=== PATIENT | male | born 1950 | race Caucasian/White ===

== ENCOUNTER 2018-07-04 01:28 | Emergency (ER) | payer OTHER ==
[2018-07-04] MEDS ORDERED: MORPHINE SULFATE 10 MG/ML VIAL IVP ONE (01:34)
[2018-07-04] MEDS ORDERED: ONDANSETRON HCL IV 4 MG/2 ML VIAL IVP ONE (01:34)
[2018-07-04] MEDS ORDERED: 0.9 % SODIUM CHLORIDE 1,000 ML BAG IV ONE ×2 (01:34→02:21)
--- NOTE | 2018-07-04 01:39 | Emergency Department Record ---
History of Present Illness - General Chief Complaint: Abdominal Pain Stated Complaint: ABDOMINAL PAIN Time Seen by Provider: 07/04/18 01:33 Source: Patient, Family Mode of Arrival: Ambulatory Limitations: No limitations - History of Present Illness Initial Comments: 68 yo male presents with abdominal pain for about 2 hours. He states he ate a number of nuts and then developed upper to middle abdominal pressure. The pressure has been constant that last 2 hours. He has nausea and dry heaves. No diarrhea. No chest pain or shortness of breath. No fevers. He had a normal day prior to this. 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 No recent changes in his health. He denies a history of abdominal surgery. PCP is Dr Kaiser. No history of gallstone, ulcers, GERD, intestinal issues. He is not a smoker, occasional alcohol, No current prescription medications. No known CAD, HTN, DM, elevated cholesterol. MD Complaint: Abdominal pain -: Hour(s) (2) Location: Epigastric Radiation: Epigastric Migration to: Epigastric Severity scale (1-10): 5 Quality: Aching Consistency: Constant Improves With: Nothing Worsens With: Eating Associated Symptoms: Anorexia, Vomiting (dry heaves) - Related Data Home Medications Medication Instructions Recorded Confirmed Last Taken No Home Med [NO HOME MEDS] 07/04/18 07/04/18 Unknown Allergies Allergy/AdvReac Type Severity Reaction Status Date / Time No Known Drug Allergies Allergy Verified 07/04/18 01:38 Review of Systems Constitutional: Denies: Chills, Fever, Malaise, Weakness Eyes: Denies: Eye discharge ENT: Denies: Congestion, Throat pain Respiratory: Denies: Cough, Dyspnea Cardiovascular: Denies: Chest pain, Palpitations, Syncope Endocrine: Denies: Fatigue, Polydipsia, Polyuria Gastrointestinal: Reports: Abdominal pain, Nausea, Vomiting. Denies: Constipation, Diarrhea, Hematemesis, Hematochezia, Melena Genitourinary: Denies: Dysuria, Frequency, Hematuria Musculoskeletal: Reports: Back pain. Denies: Arthralgia, Joint swelling, Myalgia Skin: Denies: Bruising, Change in color, Rash Neurological: Denies: Headache Psychiatric: Denies: Anxiety Hematological/Lymphatic: Denies: Blood Clots, Easy bleeding, Easy bruising Physical Exam - General General Appearance: Alert, Oriented x3, Cooperative, No acute distress Limitations: No limitations - Head Head exam: Atraumatic, Normal inspection - Eye Eye exam: Normal appearance, Conjunctival injection - ENT ENT exam: Normal exam Ear exam: Normal external inspection Nasal Exam: Normal inspection Mouth exam: Normal external inspection - Neck Neck exam: Normal inspection - Respiratory Respiratory exam: Normal lung sounds bilaterally. negative: Respiratory distress - Cardiovascular Cardiovascular Exam: Regular rate, Normal rhythm, Normal heart sounds Peripheral Pulses: 2+: Radial (R), Radial (L) - GI/Abdominal GI/Abdominal exam: Soft, Normal bowel sounds, Tenderness (mild tenderness upper abdomen otherwise very soft). negative: Diminished bowel sounds, Distended, Guarding, Hernia, Mass, Pulsatile mass, Rebound, Rigid - Rectal Rectal exam: Deferred - exam: Deferred - Extremities Extremities exam: Normal inspection. negative: Pedal edema - Back Back exam: Denies: CVA tenderness (R), CVA tenderness (L) - Neurological Neurological exam: Alert, Oriented X3 - Psychiatric Psychiatric exam: Normal affect, Normal mood - Skin Skin exam: Dry, Intact, Normal color, Warm Course - Reevaluation(s) Reevaluation #1: No prior visits on the EMR 07/04/18 01:38 07/04/18 01:43 EKG #1: 0139 Rate: 70 Rhythm: sinus [place]: normal Intervals: normal ST segments: normal Normal EKG Prior: none 07/04/18 01:56 The CBC was reviewed. No acute changes. 07/04/18 02:11 The CMP and Lipase were reviewed The HCO3 and AG were 21, TBili 1.9 and BUN 24. May represent some volume depletion from hockey. Lipase is 66 Normal Liver Transaminases and Alk Phos. The Lactic Acid is 2.6 07/04/18 02:25 The patient reports his abdominal discomfort is worse with the oral contrast. He states the pressure in his abdomen has not improved with treatment so far. 07/04/18 02:28 07/04/18 03:49 [facility] report gallbladder appears distended. There is wall thickening with suggestion of infiltration of fat adjacent to the gall bladder suspicious for acute cholecystitis. 07/04/18 04:09 The patient was informed of the results. He is now completely pain free. We discussed this likely could be a gall bladder issue. I offered to transfer him , monitor until AM and get and US and surgery consult if needed. He declined at this time. He states since he is pain free he requests no further testing or treatment at this time. He requests discharge home and will return for a recheck and US in the morning. I explained the symptoms could return. He understands and still requests DC to return for a recheck. He will be referred to general surgery regardless. He will return for a recheck around 10am. He knows to remain NPO and he agrees to return sooner if fever, vomiting or return of pain. He is completely asymptomatic at discharge. 07/04/18 04:24 Medical Decision Making - Lab Data Result diagrams: 07/04/18 01:40 07/04/18 01:40 Disposition Disposition: Discharge Clinical Impression: Abdominal pain in male, Biliary colic Disposition: Home, Self-Care Condition: (1) Good Instructions: Biliary Colic (ED) Additional Instructions: Return to the ER at 10 am for a recheck Return sooner if the pain in the abdomen returns, fever, vomiting or any new concerns Do not eat prior to returning as this could interfere with the ultrasound testing. Referrals: Bruno Paul [DOCTOR OF OSTEOPATH] - [facility] [Provider Group] Forms: Patient Portal Access Time of Disposition: 04:15 Quality - Quality Measures Quality Measures: N/A - Blood Pressure Screening Does Patient Have Any of the Following: No Blood Pressure Classification: Pre-Hypertensive BP Reading Systolic Measurement: 178 Diastolic Measurement: 89 Screening for High Blood Pressure: < Pre-Hypertensive BP, F/U Documented > [ G8950] Pre-Hypertensive Follow-up Interventions: Referral to alternative/primary care provider.
[2018-07-04 01:50] LABS: BASO % 0.3 % (0-6); EOS % 7.5 % (0-6); GRAN % 60.9 % (47-80); HEMATOCRIT 44.2 % (42.0-52.0); HEMOGLOBIN 15.6 gm/dl (14.0-18.0); LYMPH % 25.4 % (16-45); MEAN CELL VOLUME 87.5 fl (81-97); MEAN CORPUSCULAR HEMOGLOBIN 30.9 pg (27-33); MEAN CORPUSCULAR HGB CONC 35.3 g/dl (32-36); MEAN PLATELET VOLUME 10.5 fl (7.4-10.4); MONO % 5.9 % (0-9); PLATELET COUNT 149 K/uL (130-400); RED BLOOD COUNT 5.05 M/uL (4.40-5.70); WHITE BLOOD COUNT W/O DIFF 7.6 K/uL (4.2-12.2)
[2018-07-04 02:00] LABS: BLOOD UREA NITROGEN 24 mg/dL (8-23); EST GLOMERULAR FILTRATION RATE > 60 mL/min; TOTAL PROTEIN 7.2 g/dL (6.6-8.7)
[2018-07-04 02:02] LABS: GLUCOSE,RANDOM 120 mg/dL (74-109)
[2018-07-04 02:03] LABS: PROTHROMBIN TIME (PATIENT) 10.5 SECONDS (9.5-12.1)
[2018-07-04] MEDS ORDERED: FENTANYL PF 100MCG/2ML VIAL IVP ONE (02:03)
[2018-07-04 02:05] LABS: ALB/GLOB RATIO 1.9 (1.1-1.8); ALBUMIN 4.7 g/dL (4.0-5.0); ALKALINE PHOSPHATASE 68 U/L (40-129); ALT/SGPT 21 U/L (<41); AST/SGOT 16 U/L (10.0-50.0); LIPASE 66 U/L (13-60)
[2018-07-04] MEDS ORDERED: ACETAMINOPHEN 1,000 MG/100 ML BTL IVPB ONE (02:25)
[2018-07-04] MEDS: HYDROMORPHONE HCL 2 MG/ML VIAL IVP ONE ×2 (02:32→02:45)
[2018-07-04] MEDS ORDERED: 0.9 % SODIUM CHLORIDE 1000ML 1,000 ML IV ONE (03:49)
--- NOTE | 2018-07-07 13:01 | CT SCAN REPORT ---
DATE: 07/04/2018. EXAM: POSTCONTRAST CT SCAN OF THE ABDOMEN AND PELVIS. HISTORY: Epigastric and right upper abdominal quadrant pain. COMPARISON: None. TECHNIQUE: Postcontrast CT of the abdomen and pelvis with 100 mL of Omnipaque 300 intravenous contrast. Oral contrast also provided. FINDINGS: Minimal dependent lower lobe atelectasis bilaterally. Lung bases are otherwise clear. Gallbladder is mildly descended with mild pericholecystic inflammatory fat stranding. No definite gallstones visible by CT. Unremarkable appearance of the liver, Adrenal glands, and pancreas. Mild splenomegaly measuring up to 13.6 cm in craniocaudal dimension. Symmetric renal perfusion. No hydronephrosis. Right-sided mid intrarenal 2.0 mm calculus. Stomach distended with likely ingested material. Small bowel is nondilated. Normal, noninflamed appendix. Small amount of scattered stool throughout the colon. Mild sigmoid colon diverticulosis without evidence of acute diverticulitis. No mesenteric or retroperitoneal lymphadenopathy. Urinary bladder mildly distended. Calcifications within the prostate. Aortoiliac arterial access is calcified and mildly tortuous. No evidence of aneurysmal dissection. No definite acute osseous findings. Multilevel lumbar spine degenerative changes. IMPRESSION: 1. MILD DISTENSION OF THE GALLBLADDER WITH SUGGESTION OF UNDERLYING WALL THICKENING WELL PERICHOLECYSTIC FAT STRANDING. NO DEFINITE GALLSTONES VISIBLE BY CT. HOWEVER, FINDINGS ARE SUSPICIOUS FOR AN INFLAMMATORY GALLBLADDER PROCESS SUCH CHOLECYSTITIS. THIS COULD BE FURTHER ASSESSED WITH DEDICATED RIGHT UPPER QUADRANT ULTRASOUND INDICATED CLINICALLY. 2. MILD SPLENOMEGALY. 3. SIGMOID COLON DIVERTICULOSIS WITHOUT EVIDENCE OF ACUTE DIVERTICULITIS. JOB NUMBER: [id number] [facility]
== END 2018-07-04 04:16 | disposition home or self-care (01) ==
LOC: ER 01:28
DX: K80.50 Calculus of bile duct without cholangitis or cholecystitis without obstruction (principal); R10.13 Epigastric pain; R11.0 Nausea
CPT/HCPCS: 74177; 80053; 83605; 83690; 84484; 85025; 85610; 85730; 93005; 93010; 96361; 96374; 96375; 99284; J2270; J2405; J7030

== ENCOUNTER 2018-07-04 09:49 | Emergency (ER) | payer OTHER ==
--- NOTE | 2018-07-04 10:16 | Emergency Department Record ---
History of Present Illness - General Chief Complaint: Abdominal Pain Stated Complaint: GALLBLADDER/ULTRA SOUND SEEN 07/03 Time Seen by Provider: 07/04/18 10:05 Source: Patient Mode of Arrival: Ambulatory Limitations: No limitations - History of Present Illness Initial Comments: pt is here to get abd us. he was here last night w ruq ap that is now gone. pt had abd ct that showed thickened gb wall. MD Complaint: Abdominal pain Onset/Timin -: Days(s) Location: RUQ Consistency: Intermittent Improves With: Nothing Worsens With: Nothing Associated Symptoms: Denies other symptoms - Related Data Allergies Allergy/AdvReac Type Severity Reaction Status Date / Time No Known Drug Allergies Allergy Verified 07/04/18 01:38 Travel Screening - Travel/Exposure Within Last 30 Days Have you traveled within the last 30 days?: No - Travel/Exposure Within Last Year Have you traveled outside the [place] in the last year?: No - Additonal Travel Details Have you been exposed to anyone with a communicable illness?: No - Travel Symptoms Symptom Screening: None Review of Systems Reviewed: No additional complaints except as noted below Constitutional: Reports: As per HPI. Denies: Chills, Fever, Malaise, Night sweats, Weakness, Weight change Eyes: Reports: As per HPI. Denies: Eye discharge, Eye pain, Photophobia, Vision change ENT: Reports: As per HPI. Denies: Congestion, Dental pain, Ear pain, Epistaxis , Hearing loss, Throat pain Respiratory: Reports: As per HPI. Denies: Cough, Dyspnea, Hemoptysis, Stridor, Wheezes Cardiovascular: Reports: As per HPI. Denies: Arrhythmia, Chest pain, Dyspnea on exertion, Edema, Murmurs, Orthopnea, Palpitations, Paroxysmal nocturnal dyspnea, Rheumatic Fever, Syncope Endocrine: Reports: As per HPI. Denies: Fatigue, Heat or cold intolerance, Polydipsia, Polyuria Gastrointestinal: Reports: As per HPI, Abdominal pain. Denies: Constipation, Diarrhea, Hematemesis, Hematochezia, Melena, Nausea, Vomiting Genitourinary: Reports: As per HPI. Denies: Dysuria, Frequency, Hematuria, Incontinence, Retention, Testicular pain, Testicular mass, Urgency Musculoskeletal: Reports: As per HPI. Denies: Arthralgia, Back pain, Gout, Joint swelling, Myalgia, Neck pain Skin: Reports: As per HPI. Denies: Bruising, Change in color, Change in hair/ nails, Lesions, Pruritus, Rash Neurological: Reports: As per HPI. Denies: Abnormal gait, Confusion, Headache, Numbness, Paresthesias, Seizure, Tingling, Tremors, Vertigo, Weakness Psychiatric: Reports: As per HPI. Denies: Anxiety, Auditory hallucinations, Depression, Homicidal thoughts, Suicidal thoughts, Visual hallucinations Hematological/Lymphatic: Reports: As per HPI. Denies: Anemia, Blood Clots, Easy bleeding, Easy bruising, Swollen glands Past Medical History - SOCIAL HISTORY Smoking Status: Never smoker Alcohol Use: Occasional Drug Use: None - RESPIRATORY Hx Respiratory Disorders: No - CARDIOVASCULAR Hx Cardio Disorders: No - NEURO Hx Neuro Disorders: No - GI Hx GI Disorders: No - Hx Genitourinary Disorders: No - ENDOCRINE Hx Endocrine Disorders: No - MUSCULOSKELETAL Hx Musculoskeletal Disorders: No - PSYCH Hx Psych Problems: No - HEMATOLOGY/ONCOLOGY Hx Hematology/Oncology Disorders: No Family Medical History Any Significant Family History?: No Physical Exam - General General Appearance: Alert, Oriented x3, Cooperative, No acute distress - Head Head exam: Normal inspection - Eye Eye exam: Normal appearance, PERRL, EOMI Pupils: Normal accommodation - ENT ENT exam: Normal exam, Mucous membranes moist, Normal external ear exam, Normal orophraynx Ear exam: Normal external inspection. negative: External canal tenderness Nasal Exam: Normal inspection. negative: Discharge, Sinus tenderness Mouth exam: Normal external inspection, Tongue normal Teeth exam: Normal inspection. negative: Dental caries Throat exam: Normal inspection. negative: Tonsillar erythema, Tonsillar exudate - Neck Neck exam: Normal inspection, Full ROM. negative: Tenderness - Respiratory Respiratory exam: Normal lung sounds bilaterally. negative: Respiratory distress - Cardiovascular Cardiovascular Exam: Regular rate, Normal rhythm, Normal heart sounds - GI/Abdominal GI/Abdominal exam: Soft, Normal bowel sounds. negative: Tenderness - Rectal Rectal exam: Deferred - exam: Deferred - Extremities Extremities exam: Normal inspection, Full ROM, Normal capillary refill. negative: Tenderness - Back Back exam: Reports: Normal inspection, Full ROM. Denies: Muscle spasm, Rash noted, Tenderness - Neurological Neurological exam: Alert, CN II-XII intact, Normal gait, Oriented X3 - Psychiatric Psychiatric exam: Normal affect, Normal mood - Skin Skin exam: Dry, Intact, Normal color, Warm Course Vital Signs 07/04/18 09:54 Temperature 98.6 F Pulse Rate 67 Respiratory 16 Rate Blood Pressure 136/89 Pulse Ox 99 - Reevaluation(s) Reevaluation #1: 07/04/18 12:48 us d/w pt. he refuses surgical consult and wants to f/u with his family doctor. pt educated to potential problems Disposition Disposition: Discharge Clinical Impression: Acute cholecystitis Cholelithiasis Qualifiers: Cholelithiasis location: gallbladder Cholecystitis presence: with cholecystitis Cholecystitis acuity: acute Biliary obstruction: without biliary obstruction Qualified Code(s): K80.00 - Calculus of gallbladder with acute cholecystitis without obstruction Disposition: Home, Self-Care Condition: (1) Good Instructions: Cholecystitis (ED), Gallstones (ED) Additional Instructions: follow up with family doctor and surgeon or GI doctor. return sooner if worse. bland diet Forms: Patient Portal Access Quality - Quality Measures Quality Measures: N/A - Blood Pressure Screening Does Patient Have Any of the Following: No Blood Pressure Classification: Pre-Hypertensive BP Reading Systolic Measurement: 136 Diastolic Measurement: 89 Screening for High Blood Pressure: < Pre-Hypertensive BP, F/U Documented > [ G8950] Pre-Hypertensive Follow-up Interventions: Follow-up with rescreen every year.
--- NOTE | 2018-07-07 11:06 | ULTRASOUND REPORT ---
EXAM: ULTRASOUND ABDOMEN, COMPLETE HISTORY: UPPER ABDOMINAL PAIN. TECHNIQUE: Routine abdominal ultrasound. COMPARISON: CT abdomen and pelvis 07/04/2018. FINDINGS: Unremarkable appearance of the visualized hepatic parenchyma. A small mobile calculus is seen within the gallbladder lumen. Mild diffuse gallbladder wall thickening measuring up to 4 mm. No definite pericholecystic fluid seen. Common bile duct measures 2 mm in diameter, which is within normal limits. Unremarkable appearance of the visualized pancreas. Portions of the head and tail are obscured by shadowing bowel gas. Prominent appearance of the spleen. Otherwise, unremarkable appearance of the visualized parenchyma. Right renal length is 10.6 cm. Left renal length is 11.4 cm. No hydronephrosis, shadowing calculus, or focal mass detected. Portions of the abdominal aorta obscured by shadowing bowel gas. Visualized portions measure up to 1.4 cm. Limited visualization of the inferior vena cava. No visible ascites. IMPRESSION: CHOLELITHIASIS WITH MILD GALLBLADDER WALL THICKENING. NO VISIBLE PERICHOLECYSTIC FLUID. FINDINGS COULD REPRESENT ACUTE CHOLECYSTITIS IN THE APPROPRIATE SETTING. JOB NUMBER: [id number] [facility]
== END 2018-07-04 12:51 | disposition home or self-care (01) ==
LOC: ER 09:49
DX: K81.0 Acute cholecystitis (principal)
CPT/HCPCS: 76700; 99281